=== PATIENT | female | born 1975 | race Two or more races ===

== ENCOUNTER 2022-02-17 16:43 | Emergency (ER) | payer MEDICAID, OTHER ==
[~2022-02-17] VITALS: Ht 157.5 cm; Wt 74.2 kg
[2022-02-17 17:03] VITALS: BP 136/82
--- NOTE | 2022-02-17 17:07 | NUR ---
PT AMB TO BED 10.
[2022-02-17] MEDS ORDERED: IBUPROFEN 600 MG TAB PO ONE (18:50)
--- NOTE | 2022-02-17 19:25 | NUR ---
Pt report given to Aron GUAMAN. Transfer of care at this time.
--- NOTE | 2022-02-17 19:34 | NUR ---
46 y/o female, c/o left rib pain post fall 1 week ago. pt denies loc, syncope, or head/neck injury. pt states pain increases with deep breathing and twisting motions. denies nausea, vomiting, diarrhea. skin is pink/warm/dry. a&o x4 with even and steady gait. lungs clear bl, heart rate even and regular. pt denies any fever, cp, sob, or cough at this time. pt states pain is 8/10 at this time. vss. patient positioned for comfort. hob elevated. bed down. ermd made aware of pt. pmh: denies nka med: denies
[2022-02-17] MEDS ORDERED: IBUP-2213 PO (19:54)
[2022-02-17] MEDS ORDERED: CYCL-711 PO (19:54)
[2022-02-17 20:42] VITALS: BP 128/75
--- NOTE | 2022-02-17 20:42 | NUR ---
Patient discharged with v/s stable. Written and verbal after care instructions given and explained. Patient alert, oriented and verbalized understanding of instructions. Ambulatory with steady gait. All questions addressed prior to discharge. ID band removed. Patient advised to follow up with PMD. Rx of Flexeril and Ibuprofen given. Patient educated on indication of medication including possible reaction and side effects. Opportunity to ask questions provided and answered.
== END 2022-02-17 20:42 | disposition home or self-care (01) ==
LOC: MED 16:43
DX: S20.212A Contusion of left front wall of thorax, initial encounter (principal); R03.0 Elevated blood-pressure reading, without diagnosis of hypertension; Z79.899 Other long term (current) drug therapy; Z79.1 Long term (current) use of non-steroidal anti-inflammatories (NSAID); W01.198A Fall on same level from slipping, tripping and stumbling with subsequent striking against other object, initial encounter; Y92.002 Bathroom of unspecified non-institutional (private) residence as the place of occurrence of the external cause; Y93.89 Activity, other specified; Y99.8 Other external cause status
CPT/HCPCS: 71101; 81025; 99283